=== PATIENT | male | born 1940 | race Caucasian/White ===

== ENCOUNTER → 2016-04-13 | Outpatient (CLI) | payer MEDICARE, OTHER ==
[~2016-04-13] MED LIST: AMLODIPINE BESY10 MG PO; ASPIRIN E.C. 8181 MG PO; ATORVASTATIN CA40 MG PO; BENAZEPRIL40 MG PO; CHO PO; CIALIS20 MG PO; CIPRO 500MG TA500 MG PO; CLOPIDOGREL PO; CYANOJECT1000 MCG/M IM; DITROPAN 5MG TAB5 MG PO; FINASTERIDE5 M1 PO; FINASTERIDE5 MG PO; FISH OIL500 MG PO; GLUCOSAMINE PO; HUMULIN N KW100 U/ML SC; IBUPROFEN600 MG PO; LASIX 80MG TABL80 MG; LASIX20 M1 PO; LASIX40 M1 PO; LASIX40 MG PO; LASIX80 M1 PO; LEVAQUIN 5500 MG/TA1 PO; LEVAQUIN 750MG750 M1 PO; LEVOTHYROXINE100 MC1 PO; LEXAPRO 10MG10 MG PO; LOPRESSOR 225 MG/TAB PO; LOPRESSOR 550 MG/TAB PO; LOW DOSE ASPIRI81 MG PO; MACRODANTIN50 M1 PO; NORCO 325 MG-51 TAB PO; NOVOLOG 100U100 U/ML SQ; OMEGA-3 FISH1200 M1 PO; OXYBUTYNIN5 MG PO; PHENAZOPYRIDIN200 MG PO; PHOS LO PO; POTASSIUM BICA PO; SODIUM BIC650 MG/TAB PO; ULTRAM50 M1 PO; VENLAFAXINE H37.5 M2 PO; VITAMIN D 1001000 IU PO; [UNRECOGNIZED DRUG - OTHER]
== END ==
LOC: RAD 09:58
DX: M17.0 Bilateral primary osteoarthritis of knee (principal)

== ENCOUNTER 2016-05-17 09:25 | Emergency (ER) | payer MEDICARE, OTHER ==
[~2016-05-17 09:25] MED LIST changes: -ASPIRIN E.C. 8181 MG PO; -CLOPIDOGREL PO; -FINASTERIDE5 M1 PO; -HUMULIN N KW100 U/ML SC; -LASIX 80MG TABL80 MG; -LASIX80 M1 PO; -LEVAQUIN 5500 MG/TA1 PO; -LEXAPRO 10MG10 MG PO; -LOPRESSOR 225 MG/TAB PO; -LOPRESSOR 550 MG/TAB PO; -OMEGA-3 FISH1200 M1 PO; -PHOS LO PO; -VENLAFAXINE H37.5 M2 PO; -VITAMIN D 1001000 IU PO; -[UNRECOGNIZED DRUG - OTHER]
[2016-05-17] MEDS ORDERED: VENLAFAXINE H37.5 M2 PO (10:44)
[2016-05-17] MEDS ORDERED: LEXAPRO 10MG10 MG PO (10:44)
[2016-05-17] MEDS ORDERED: ATORVASTATIN CA40 MG PO (10:45)
[2016-05-17] MEDS ORDERED: FINASTERIDE5 M1 PO (10:45)
[2016-05-17] MEDS ORDERED: VITAMIN D 1001000 IU PO (10:46)
[2016-05-17] MEDS ORDERED: [UNRECOGNIZED DRUG - OTHER] (10:47)
[2016-05-17] MEDS ORDERED: ASPIRIN E.C. 8181 MG PO (10:48)
[2016-05-17] MEDS ORDERED: OMEGA-3 FISH1200 M1 PO (10:48)
[2016-05-17 12:15] VITALS: BP 172/86
== END 2016-05-17 12:23 | disposition short-term general hospital (02) ==
LOC: ED 09:25
DX: R07.9 Chest pain, unspecified (principal); N18.6 End stage renal disease; E11.9 Type 2 diabetes mellitus without complications; I10 Essential (primary) hypertension; Z99.2 Dependence on renal dialysis; Z85.828 Personal history of other malignant neoplasm of skin; Z87.891 Personal history of nicotine dependence

== ENCOUNTER 2016-05-26 13:13 | Emergency (ER) | payer MEDICARE, OTHER ==
[~2016-05-26 13:13] MED LIST changes: +ASPIRIN E.C. 8181 MG PO; +FINASTERIDE5 M1 PO; +LEXAPRO 10MG10 MG PO; +OMEGA-3 FISH1200 M1 PO; +VENLAFAXINE H37.5 M2 PO; +VITAMIN D 1001000 IU PO; +[UNRECOGNIZED DRUG - OTHER]
[2016-05-26] MEDS ORDERED: CLOPIDOGREL PO (13:24)
[2016-05-26] MEDS ORDERED: LOPRESSOR 225 MG/TAB PO (13:24)
[2016-05-26 16:12] VITALS: BP 121/64
[2016-05-26] MEDS ORDERED: LEVAQUIN 5500 MG/TA1 PO (16:36)
== END 2016-05-26 16:41 | disposition home or self-care (01) ==
LOC: ED 13:13
DX: N39.0 Urinary tract infection, site not specified (principal); N19 Unspecified kidney failure; S00.81XA Abrasion of other part of head, initial encounter; S00.83XA Contusion of other part of head, initial encounter; S70.11XA Contusion of right thigh, initial encounter; W19.XXXA Unspecified fall, initial encounter

== ENCOUNTER 2016-06-14 14:20 | Outpatient (RCR) | payer MEDICARE, OTHER ==
[~2016-06-14 14:20] MED LIST changes: +CLOPIDOGREL PO; +LEVAQUIN 5500 MG/TA1 PO; +LOPRESSOR 225 MG/TAB PO
== END 2016-08-24 10:34 | disposition home or self-care (01) ==
LOC: PT 14:20
DX: R53.81 Other malaise (principal); Z91.81 History of falling; N18.4 Chronic kidney disease, stage 4 (severe)

== ENCOUNTER 2016-08-27 11:43 | Emergency (ER) | payer MEDICARE, OTHER ==
[~2016-08-27] VITALS: Wt 100.5 kg
[2016-08-27] MEDS ORDERED: LOPRESSOR 550 MG/TAB PO (13:43)
[2016-08-27] MEDS ORDERED: AMLODIPINE BESY10 MG PO (13:45)
[2016-08-27] MEDS ORDERED: HUMULIN N KW100 U/ML SC (13:46)
[2016-08-27 15:13] VITALS: BP 134/74
== END 2016-08-27 15:30 | disposition home or self-care (01) ==
LOC: ED 11:43
DX: E11.65 Type 2 diabetes mellitus with hyperglycemia (principal); Z79.4 Long term (current) use of insulin; Z96.41 Presence of insulin pump (external) (internal); Z85.51 Personal history of malignant neoplasm of bladder; E03.9 Hypothyroidism, unspecified; I25.10 Atherosclerotic heart disease of native coronary artery without angina pectoris; Z87.891 Personal history of nicotine dependence; Z79.82 Long term (current) use of aspirin; N18.9 Chronic kidney disease, unspecified
CPT/HCPCS: J1815; J7030

== ENCOUNTER 2016-08-30 11:30 | Emergency (ER) | payer MEDICARE, OTHER ==
[~2016-08-30 11:30] MED LIST changes: +HUMULIN N KW100 U/ML SC; +LOPRESSOR 550 MG/TAB PO
[2016-08-30 14:09] VITALS: BP 136/76
== END 2016-08-30 13:50 | disposition short-term general hospital (02) ==
LOC: ED 11:30
DX: R07.89 Other chest pain (principal); R79.9 Abnormal finding of blood chemistry, unspecified; I25.10 Atherosclerotic heart disease of native coronary artery without angina pectoris; I12.0 Hypertensive chronic kidney disease with stage 5 chronic kidney disease or end stage renal disease; Z99.2 Dependence on renal dialysis; N18.6 End stage renal disease; Z95.5 Presence of coronary angioplasty implant and graft; E10.22 Type 1 diabetes mellitus with diabetic chronic kidney disease; Z79.4 Long term (current) use of insulin; E78.5 Hyperlipidemia, unspecified; Z79.82 Long term (current) use of aspirin

== ENCOUNTER 2016-09-06 10:44 | Emergency (ER) | payer MEDICARE, OTHER ==
[2016-09-06] MEDS ORDERED: LEVAQUIN 5500 MG/TA1 PO (15:03)
[2016-09-06 16:19] VITALS: BP 134/67
== END 2016-09-06 15:20 | disposition home or self-care (01) ==
LOC: ED 10:44
DX: N39.0 Urinary tract infection, site not specified (principal); R53.81 Other malaise; R42 Dizziness and giddiness; I10 Essential (primary) hypertension; E11.8 Type 2 diabetes mellitus with unspecified complications; Z79.4 Long term (current) use of insulin; Z96.41 Presence of insulin pump (external) (internal); N18.6 End stage renal disease; I25.10 Atherosclerotic heart disease of native coronary artery without angina pectoris; Z87.891 Personal history of nicotine dependence; Z85.51 Personal history of malignant neoplasm of bladder; Z79.82 Long term (current) use of aspirin
CPT/HCPCS: A4354

== ENCOUNTER 2016-09-30 13:57 | Emergency (ER) | payer MEDICARE, OTHER ==
[~2016-09-30] VITALS: Ht 175.3 cm; Wt 86.4 kg
[2016-09-30] MEDS ORDERED: LASIX80 M1 PO (14:31)
[2016-09-30] MEDS ORDERED: LASIX 80MG TABL80 MG (14:38)
[2016-09-30] MEDS ORDERED: PHOS LO PO (14:38)
[2016-09-30 15:32] VITALS: BP 126/64
== END 2016-09-30 15:28 | disposition home or self-care (01) ==
LOC: ED 13:57
DX: I95.9 Hypotension, unspecified (principal); Z91.14 Patient's other noncompliance with medication regimen; I25.10 Atherosclerotic heart disease of native coronary artery without angina pectoris; I12.0 Hypertensive chronic kidney disease with stage 5 chronic kidney disease or end stage renal disease; N18.6 End stage renal disease; Z99.2 Dependence on renal dialysis; Z85.51 Personal history of malignant neoplasm of bladder; E11.9 Type 2 diabetes mellitus without complications; Z79.4 Long term (current) use of insulin

== ENCOUNTER 2017-01-21 22:57 | Emergency (ER) | payer MEDICARE, OTHER ==
[~2017-01-21] VITALS: Ht 175.3 cm; Wt 90.9 kg
[~2017-01-21 22:57] MED LIST changes: +LASIX 80MG TABL80 MG; +LASIX80 M1 PO; +PHOS LO PO
[2017-01-22 00:39] VITALS: BP 143/71
== END 2017-01-22 00:39 | disposition home or self-care (01) ==
LOC: ED 22:57
DX: S51.812A Laceration without foreign body of left forearm, initial encounter (principal); W54.1XXA Struck by dog, initial encounter; Y92.009 Unspecified place in unspecified non-institutional (private) residence as the place of occurrence of the external cause; E11.22 Type 2 diabetes mellitus with diabetic chronic kidney disease; N18.5 Chronic kidney disease, stage 5; Z79.4 Long term (current) use of insulin; Z96.41 Presence of insulin pump (external) (internal); E03.9 Hypothyroidism, unspecified; C67.9 Malignant neoplasm of bladder, unspecified; Z79.02 Long term (current) use of antithrombotics/antiplatelets; Z23 Encounter for immunization
CPT/HCPCS: 90715; A4649

== ENCOUNTER 2017-02-05 19:38 | Emergency (ER) | payer MEDICARE, OTHER ==
[~2017-02-05] VITALS: Ht 175.3 cm; Wt 90.9 kg
[2017-02-05 20:42] LABS: HEMATOCRIT 36.9 % (42.0-52.0); HEMOGLOBIN 11.9 g/dL (13.5-18.0); MEAN CELL VOLUME 96 fl (78-100); MEAN CORPUSCULAR HEMOGLOBIN 31 pg (27-31); MEAN CORPUSCULAR HGB CONC 32 g/dL (33-37); MEAN PLATELET VOLUME 11.1 fl (7.4-10.4); PLATELET COUNT 231 K/mm3 (130-400); RED BLOOD COUNT 3.85 M/mm3 (4.20-5.60); RED CELL DISTRIBUTION WIDTH 15.5 % (11.5-14.5); WHITE BLOOD COUNT 7.2 K/mm3 (4.8-10.8)
[2017-02-05 20:54] LABS: ALBUMIN 3.5 g/dL (3.5-5.0); BUN/CREATININE RATIO 6.5 (6.0-26.0); CALCIUM 8.5 mg/dL (8.4-10.2); TOTAL BILIRUBIN 0.7 mg/dL (0.2-1.3); TOTAL PROTEIN 6.8 g/dL (6.3-8.2)
[2017-02-05 21:10] LABS: POTASSIUM 2.9 mmol/L (3.6-5.0)
[2017-02-05 21:24] LABS: LYMPHOCYTE 13 % (20-51); MONOCYTE 2 % (3-10); NEUTROPHILS 76 % (42-75)
[2017-02-05] MEDS ORDERED: POTASSIUM CHLO20 ME3 PO (22:06)
[2017-02-05 22:30] VITALS: BP 129/64
== END 2017-02-05 22:30 | disposition home or self-care (01) ==
LOC: ED 19:38
PROVIDERS: Family Medicine
DX: R07.9 Chest pain, unspecified (principal); E87.6 Hypokalemia; E11.65 Type 2 diabetes mellitus with hyperglycemia; E11.22 Type 2 diabetes mellitus with diabetic chronic kidney disease; I12.0 Hypertensive chronic kidney disease with stage 5 chronic kidney disease or end stage renal disease; N18.6 End stage renal disease; Z99.2 Dependence on renal dialysis; C67.9 Malignant neoplasm of bladder, unspecified; I51.9 Heart disease, unspecified; Z79.4 Long term (current) use of insulin; T38.3X6A Underdosing of insulin and oral hypoglycemic [antidiabetic] drugs, initial encounter; Z91.138 Patient's unintentional underdosing of medication regimen for other reason; Z96.41 Presence of insulin pump (external) (internal)
CPT/HCPCS: J1815

== ENCOUNTER → 2017-02-07 | Outpatient (CLI) | payer MEDICARE, OTHER ==
[2017-02-05 22:30] VITALS: BP 129/64
[~2017-02-07] MED LIST changes: +POTASSIUM CHLO20 ME3 PO
[2017-02-07 17:48] LABS: BUN/CREATININE RATIO 5.7 (6.0-26.0); CALCIUM 8.8 mg/dL (8.4-10.2); POTASSIUM 3.1 mmol/L (3.6-5.0)
== END ==
LOC: LAB 17:08
PROVIDERS: Family Medicine
DX: E11.9 Type 2 diabetes mellitus without complications (principal)

== ENCOUNTER 2017-04-18 20:54 | Emergency (ER) | payer MEDICARE, OTHER ==
[2017-04-18 22:20] VITALS: BP 137/71
== END 2017-04-18 22:20 | disposition home or self-care (01) ==
LOC: ED 20:54
DX: E11.65 Type 2 diabetes mellitus with hyperglycemia (principal); E11.22 Type 2 diabetes mellitus with diabetic chronic kidney disease; I12.0 Hypertensive chronic kidney disease with stage 5 chronic kidney disease or end stage renal disease; N18.6 End stage renal disease; Z99.2 Dependence on renal dialysis; Z96.41 Presence of insulin pump (external) (internal); I25.10 Atherosclerotic heart disease of native coronary artery without angina pectoris; W01.0XXA Fall on same level from slipping, tripping and stumbling without subsequent striking against object, initial encounter; Y92.007 Garden or yard of unspecified non-institutional (private) residence as the place of occurrence of the external cause
CPT/HCPCS: J1815

== ENCOUNTER → 2017-04-22 | Outpatient (CLI) | payer MEDICARE, OTHER ==
[2017-04-18 22:20] VITALS: BP 137/71
[2017-04-22 15:01] LABS: BUN/CREATININE RATIO 5.7 (6.0-26.0); CALCIUM 8.7 mg/dL (8.4-10.2); POTASSIUM 3.6 mmol/L (3.6-5.0)
[2017-04-22 15:02] LABS: HEMATOCRIT 33.1 % (42.0-52.0); HEMOGLOBIN 9.9 g/dL (13.5-18.0); MEAN CELL VOLUME 103 fl (78-100); MEAN CORPUSCULAR HEMOGLOBIN 31 pg (27-31); MEAN CORPUSCULAR HGB CONC 30 g/dL (33-37); MEAN PLATELET VOLUME 10.7 fl (7.4-10.4); PLATELET COUNT 238 K/mm3 (130-400); RED BLOOD COUNT 3.22 M/mm3 (4.20-5.60); RED CELL DISTRIBUTION WIDTH 16.1 % (11.5-14.5); WHITE BLOOD COUNT 7.9 K/mm3 (4.8-10.8)
[2017-04-22 16:50] LABS: LYMPHOCYTE 13 % (20-51); MONOCYTE 6 % (3-10); NEUTROPHILS 79 % (42-75)
== END ==
LOC: LAB 14:25
PROVIDERS: Family Medicine
DX: E87.6 Hypokalemia (principal); N18.4 Chronic kidney disease, stage 4 (severe); E03.9 Hypothyroidism, unspecified; Z88.1 Allergy status to other antibiotic agents

== ENCOUNTER 2017-04-27 11:17 | Emergency (ER) | payer MEDICARE, OTHER ==
[~2017-04-27] VITALS: Ht 172.7 cm; Wt 102.6 kg
[2017-04-27 12:26] LABS: HEMATOCRIT 31.2 % (42.0-52.0); HEMOGLOBIN 9.8 g/dL (13.5-18.0); MEAN CELL VOLUME 100 fl (78-100); MEAN CORPUSCULAR HEMOGLOBIN 31 pg (27-31); MEAN CORPUSCULAR HGB CONC 31 g/dL (33-37); MEAN PLATELET VOLUME 9.7 fl (7.4-10.4); PLATELET COUNT 282 K/mm3 (130-400); RED BLOOD COUNT 3.13 M/mm3 (4.20-5.60); WHITE BLOOD COUNT 8.3 K/mm3 (4.8-10.8)
[2017-04-27 12:38] LABS: ALBUMIN 3.7 g/dL (3.5-5.0); ALT/SGPT 30 U/L (21-72); AST-SGOT 34 U/L (17-59); CALCIUM 8.9 mg/dL (8.4-10.2); CARBON DIOXIDE 30 mmol/L (22-30); GLUCOSE 126 mg/dL (75-110); POTASSIUM 3.3 mmol/L (3.6-5.0); SODIUM 140 mmol/L (137-145); TOTAL BILIRUBIN 0.7 mg/dL (0.2-1.3); TOTAL PROTEIN 7.1 g/dL (6.3-8.2)
[2017-04-27 12:41] LABS: LYMPHOCYTE 12 % (20-51); MONOCYTE 4 % (3-10); NEUTROPHILS 77 % (42-75)
[2017-04-27 14:23] LABS: URINE APPEARANCE HAZY; URINE BILIRUBIN NEGATIVE (NEGATIVE); URINE BLOOD TRACE (NEGATIVE); URINE COLOR YELLOW; URINE KETONE NEGATIVE (NEGATIVE); URINE LEUKOCYTE ESTERASE TRACE (NEGATIVE); URINE MUCUS PRESENT (NOT PRESENT); URINE NITRATE NEGATIVE (NEGATIVE); URINE PROTEIN(semi-quant) 2+ mg/dL (NEGATIVE); URINE UROBILINOGEN NORMAL (NORMAL); URINE WBC >50 /hpf (0-3)
[2017-04-27] MEDS ORDERED: POTASSIUM CHLO10 ME7 PO (14:58)
[2017-04-27 15:11] VITALS: BP 126/59
== END 2017-04-27 15:03 | disposition home or self-care (01) ==
LOC: ED 11:17
PROVIDERS: Physician Assistant
DX: I95.9 Hypotension, unspecified (principal); E11.22 Type 2 diabetes mellitus with diabetic chronic kidney disease; N18.5 Chronic kidney disease, stage 5; E87.6 Hypokalemia; Z99.2 Dependence on renal dialysis; Z79.4 Long term (current) use of insulin; G47.30 Sleep apnea, unspecified; D64.9 Anemia, unspecified; Z85.51 Personal history of malignant neoplasm of bladder; Z87.891 Personal history of nicotine dependence; Z87.440 Personal history of urinary (tract) infections; Z79.82 Long term (current) use of aspirin; Z79.02 Long term (current) use of antithrombotics/antiplatelets
CPT/HCPCS: A4344; A4354

== ENCOUNTER 2017-05-03 10:51 | Emergency (ER) | payer MEDICARE, OTHER ==
[~2017-05-03] VITALS: Wt 102.3 kg
[~2017-05-03 10:51] MED LIST changes: +POTASSIUM CHLO10 ME7 PO
[2017-05-03 11:43] LABS: HEMATOCRIT 33.2 % (42.0-52.0); HEMOGLOBIN 10.6 g/dL (13.5-18.0); MEAN CELL VOLUME 100 fl (78-100); MEAN CORPUSCULAR HEMOGLOBIN 32 pg (27-31); MEAN CORPUSCULAR HGB CONC 32 g/dL (33-37); MEAN PLATELET VOLUME 10.7 fl (7.4-10.4); PLATELET COUNT 310 K/mm3 (130-400); RED BLOOD COUNT 3.33 M/mm3 (4.20-5.60); RED CELL DISTRIBUTION WIDTH 15.2 % (11.5-14.5); WHITE BLOOD COUNT 15.9 K/mm3 (4.8-10.8)
[2017-05-03 11:52] LABS: ALBUMIN 3.8 g/dL (3.5-5.0); BUN/CREATININE RATIO 5.5 (6.0-26.0); CALCIUM 9.3 mg/dL (8.4-10.2); POTASSIUM 3.6 mmol/L (3.6-5.0); TOTAL BILIRUBIN 0.5 mg/dL (0.2-1.3); TOTAL PROTEIN 7.2 g/dL (6.3-8.2)
[2017-05-03 12:17] LABS: LYMPHOCYTE 7 % (20-51); MONOCYTE 2 % (3-10); NEUTROPHILS 86 % (42-75)
[2017-05-03 12:37] LABS: URINE APPEARANCE HAZY; URINE BILIRUBIN NEGATIVE (NEGATIVE); URINE BLOOD TRACE (NEGATIVE); URINE COLOR YELLOW; URINE KETONE NEGATIVE (NEGATIVE); URINE LEUKOCYTE ESTERASE NEGATIVE (NEGATIVE); URINE NITRATE NEGATIVE (NEGATIVE); URINE PROTEIN(semi-quant) 2+ mg/dL (NEGATIVE); URINE UROBILINOGEN NORMAL (NORMAL)
[2017-05-03 13:51] VITALS: BP 133/64
== END 2017-05-03 13:38 | disposition short-term general hospital (02) ==
LOC: ED 10:51
PROVIDERS: Physician Assistant
DX: E11.22 Type 2 diabetes mellitus with diabetic chronic kidney disease (principal); N18.5 Chronic kidney disease, stage 5; Z99.2 Dependence on renal dialysis; Z79.4 Long term (current) use of insulin; I95.9 Hypotension, unspecified; G47.30 Sleep apnea, unspecified; Z85.51 Personal history of malignant neoplasm of bladder; Z88.1 Allergy status to other antibiotic agents; Z79.02 Long term (current) use of antithrombotics/antiplatelets; Z79.82 Long term (current) use of aspirin
CPT/HCPCS: J7030

== ENCOUNTER 2017-06-13 14:05 | Emergency (ER) | payer MEDICARE, OTHER ==
[~2017-06-13] VITALS: Wt 104.0 kg
[2017-06-13] MEDS ORDERED: CALCITRIOL0.25 MCG PO (14:21)
[2017-06-13] MEDS ORDERED: ESCITALOPRAM10 MG PO (14:21)
[2017-06-13] MEDS ORDERED: PROCRIT 1010 MU/VIAL IJ (14:30)
[2017-06-13] MEDS ORDERED: LEVEMIR100 U/M1 SQ (14:32)
[2017-06-13] MEDS ORDERED: PROTONIX TR40 M1 PO (14:41)
[2017-06-13] MEDS ORDERED: FEOSOL325 MG PO (14:41)
[2017-06-13] MEDS ORDERED: NATURE'S BLEND100 M2 (14:43)
[2017-06-13] MEDS ORDERED: B-12 DOTS500 MCG (14:43)
[2017-06-13 15:06] LABS: HEMATOCRIT 26.3 % (42.0-52.0); MEAN CORPUSCULAR HEMOGLOBIN 34 pg (27-31); MEAN CORPUSCULAR HGB CONC 30 g/dL (33-37); MEAN PLATELET VOLUME 9.5 fl (7.4-10.4); PLATELET COUNT 306 K/mm3 (130-400); RED BLOOD COUNT 2.38 M/mm3 (4.20-5.60); RED CELL DISTRIBUTION WIDTH 13.9 % (11.5-14.5); WHITE BLOOD COUNT 6.3 K/mm3 (4.8-10.8)
[2017-06-13 15:08] LABS: MEAN CELL VOLUME 111 fl (78-100)
[2017-06-13 15:20] LABS: ALBUMIN 3.4 g/dL (3.5-5.0); BUN/CREATININE RATIO 6.1 (6.0-26.0); CALCIUM 7.7 mg/dL (8.4-10.2); POTASSIUM 3.7 mmol/L (3.6-5.0); TOTAL BILIRUBIN 0.3 mg/dL (0.2-1.3); TOTAL PROTEIN 6.7 g/dL (6.3-8.2)
[2017-06-13 15:46] LABS: LYMPHOCYTE 8 % (20-51); MONOCYTE 7 % (3-10); NEUTROPHILS 80 % (42-75)
[2017-06-13 17:26] LABS: PROTHROMBIN TIME 9.7 SECONDS (9.0-12.0)
[2017-06-13 19:15] VITALS: BP 163/69
== END 2017-06-13 19:15 | disposition short-term general hospital (02) ==
LOC: ED 14:05
PROVIDERS: Nurse Practitioner Primary Care
DX: R53.1 Weakness (principal); I63.9 Cerebral infarction, unspecified; I69.951 Hemiplegia and hemiparesis following unspecified cerebrovascular disease affecting right dominant side; E11.22 Type 2 diabetes mellitus with diabetic chronic kidney disease; Z79.4 Long term (current) use of insulin; Z79.02 Long term (current) use of antithrombotics/antiplatelets; N18.6 End stage renal disease; Z99.2 Dependence on renal dialysis

== ENCOUNTER → 2017-07-15 | Outpatient (CLI) | payer MEDICARE, OTHER ==
[~2017-07-15] MED LIST changes: +B-12 DOTS500 MCG; +CALCITRIOL0.25 MCG PO; +ESCITALOPRAM10 MG PO; +FEOSOL325 MG PO; +LEVEMIR100 U/M1 SQ; +NATURE'S BLEND100 M2; +PROCRIT 1010 MU/VIAL IJ; +PROTONIX TR40 M1 PO
[2017-07-15 14:17] LABS: PROTHROMBIN TIME 10.8 SECONDS (9.0-12.0)
== END ==
LOC: LAB 13:45
PROVIDERS: Family Medicine
DX: I87.2 Venous insufficiency (chronic) (peripheral) (principal); I63.9 Cerebral infarction, unspecified

== ENCOUNTER → 2017-07-25 | Outpatient (CLI) | payer MEDICARE, OTHER | LOC: RAD 14:43 | DX: M25.821 Other specified joint disorders, right elbow (principal); W19.XXXA Unspecified fall, initial encounter; Z88.1 Allergy status to other antibiotic agents ==

== ENCOUNTER → 2017-08-25 | Outpatient (CLI) | payer MEDICARE, OTHER ==
[~2017-08-25] VITALS: Wt 104.0 kg
[~2017-08-25] MED LIST changes: +COUMADIN 5MG5 MG/TAB PO
[2017-08-25 09:14] VITALS: BP 128/62
[2017-08-25 10:06] LABS: ALBUMIN 3.8 g/dL (3.5-5.0); BUN/CREATININE RATIO 6.8 (6.0-26.0); CALCIUM 8.7 mg/dL (8.4-10.2); POTASSIUM 3.9 mmol/L (3.6-5.0); TOTAL BILIRUBIN 0.4 mg/dL (0.2-1.3); TOTAL PROTEIN 7.6 g/dL (6.3-8.2)
[2017-08-25 10:07] LABS: BASO # 0.1 (0.02-0.10); EOS # 0.5 (0.04-0.40); HEMATOCRIT 40.6 % (42.0-52.0); HEMOGLOBIN 12.7 g/dL (13.5-18.0); LYMPH# 0.9 (1.50-4.00); MEAN CELL VOLUME 97 fl (78-100); MEAN CORPUSCULAR HEMOGLOBIN 30 pg (27-31); MEAN CORPUSCULAR HGB CONC 31 g/dL (33-37); MEAN PLATELET VOLUME 9.9 fl (7.4-10.4); MONO # 0.8 (0.20-0.80); NEU # 4.9 (1.40-6.50); PLATELET COUNT 288 K/mm3 (130-400); RED BLOOD COUNT 4.18 M/mm3 (4.20-5.60); RED CELL DISTRIBUTION WIDTH 15.2 % (11.5-14.5); WHITE BLOOD COUNT 7.2 K/mm3 (4.8-10.8)
[2017-08-25 10:18] LABS: PROTHROMBIN TIME 25.5 SECONDS (9.0-12.0)
[2017-08-25 10:23] LABS: EOS % 7.1 % (0.0-4.0)
== END ==
LOC: LAB 08:26 → AMSURD 08:26
PROVIDERS: Family Medicine
DX: E11.22 Type 2 diabetes mellitus with diabetic chronic kidney disease (principal); I87.2 Venous insufficiency (chronic) (peripheral); I63.9 Cerebral infarction, unspecified; N18.4 Chronic kidney disease, stage 4 (severe); I12.9 Hypertensive chronic kidney disease with stage 1 through stage 4 chronic kidney disease, or unspecified chronic kidney disease; Z45.2 Encounter for adjustment and management of vascular access device

== ENCOUNTER → 2017-09-23 | Outpatient (CLI) | payer MEDICARE, OTHER ==
[2017-08-25 09:14] VITALS: BP 128/62
[2017-09-23 12:39] LABS: PROTHROMBIN TIME 28.2 SECONDS (9.0-12.0)
== END ==
LOC: LAB 12:23
PROVIDERS: Family Medicine
DX: I87.2 Venous insufficiency (chronic) (peripheral) (principal); I63.9 Cerebral infarction, unspecified

== ENCOUNTER 2017-10-06 13:42 | Emergency (ER) | payer MEDICARE, OTHER ==
[~2017-10-06] VITALS: Ht 175.3 cm; Wt 90.9 kg
[~2017-10-06 13:42] MED LIST changes: +AMLODIPINE BESYL5 MG PO; -LOPRESSOR 550 MG/TAB PO
[2017-10-06] MEDS ORDERED: VENOFER50 MG/2.5 (14:08)
[2017-10-06] MEDS ORDERED: PROCRIT2000 U/ML (14:09)
[2017-10-06 14:41] LABS: PARTIAL THROMBOPLASTIN TIME 34.5 SECONDS (21.0-32.0); PROTHROMBIN TIME 25.9 SECONDS (9.0-12.0)
[2017-10-06] MEDS ORDERED: NORCO 325 MG-51 TA1 PO (17:51)
[2017-10-06] MEDS ORDERED: TYLENOL EXTRA500 M2 PO (17:51)
[2017-10-06 17:57] VITALS: BP 154/76
== END 2017-10-06 19:00 ==
LOC: ED 13:42
PROVIDERS: Physician Assistant
DX: S82.54XA Nondisplaced fracture of medial malleolus of right tibia, initial encounter for closed fracture (principal); W18.30XA Fall on same level, unspecified, initial encounter; Y92.481 Parking lot as the place of occurrence of the external cause; Z86.73 Personal history of transient ischemic attack (TIA), and cerebral infarction without residual deficits; E11.22 Type 2 diabetes mellitus with diabetic chronic kidney disease; N18.6 End stage renal disease; Z99.2 Dependence on renal dialysis; Z79.899 Other long term (current) drug therapy; Z79.4 Long term (current) use of insulin; Z79.82 Long term (current) use of aspirin